=== PATIENT | female | born 1945 | race Caucasian/White ===

== ENCOUNTER 2016-12-25 12:22 | Day surgery (SDC) | payer MEDICARE ==
[~2016-12-25 12:22] MED LIST: POVIDONE-IODINE 5% OPHTH SOLN 600 GTTS/BOT SOLN.DROP ONE
[2016-12-25] MEDS ORDERED: NEO/POLYMYX B SULF/DEXAMETH OP OINT 14 APPLIC/3.5 G TUBE OS ONE (12:30)
[2016-12-25] MEDS ORDERED: PHENYLEPHRINE HCL 10% 100 GTTS/5 ML BOT SOLN.DROP OS PRN (12:30)
[2016-12-25] MEDS ORDERED: CHONDR SULF 4%/HYALURONATE 3% 0.5 ML SYRINGE IO ONE (12:30)
[2016-12-25] MEDS ORDERED: EPINEPHRINE 0.5 MG in BALANCED SALT IRRIG SOLN NO.2 500 ML IO ONE (12:30)
[2016-12-25] MEDS ORDERED: PROPARACAINE HCL 0.5% 300 GTTS/BOT SOLN.DROP OS ONE (12:30)
[2016-12-25] MEDS ORDERED: D5 1/2NS 500 ML IV SCH (12:30)
[2016-12-25] MEDS ORDERED: LIDOCAINE 4% (PRES FREE) 1 ML, BALANCED SALT IRRIG SOLN COMB2 3 ML, EPINEPHRINE 1.25 MG IO ONE ×3 (12:30)
[2016-12-25] MEDS ORDERED: IV START KIT ONE (12:42)
[2016-12-25] MEDS ORDERED: SODIUM CHLORIDE 0.9% 500 ML ONE (12:42)
[2016-12-25] MEDS: FLURBIPROFEN SODIUM 0.03% 50 GTTS/2.5 ML BOT SOLN.DROP OS SCH ×2 (13:03→13:08)
[2016-12-25] MEDS: CYCLOPENTOLATE HCL 1% 40 GTTS/2 ML BOT SOLN.DROP OS SCH ×2 (13:03→13:08)
[2016-12-25] MEDS: PHENYLEPHRINE 2.5% OPHTH 40 GTTS/2 ML BOT SOLN.DROP OS SCH ×2 (13:03→13:08)
[2016-12-25] MEDS ORDERED: MIDAZOLAM HCL 1 MG/ML 2ML VIAL ONE (13:05)
--- NOTE | 2016-12-26 08:56 | OP ---
YULIYA SALAZAR [id number] : 1945 DATE OF SURGERY: December 25, 2016 SURGEON: Krishan Min M.D. PREOPERATIVE DIAGNOSIS: Cataract OS. POSTOPERATIVE DIAGNOSIS: Pseudophakia OS. COMPLICATIONS: None. PROCEDURE: CATARACT EXTRACTION AND INTRAOCULAR LENS IMPLANTATION OS. ANESTHESIA: Monitored anesthesia care. DESCRIPTION OF OPERATION: After proper informed consent and brief history and physical were performed, the patient was brought to the operating room and placed in the supine position on the operating room table. The patient was prepped and draped in the usual sterile fashion for cataract surgery in the left eye. A Keratome blade was used to make a clear corneal incision. Non-preservative Lidocaine was injected into the anterior chamber. Viscoelastic was injected into the anterior chamber. A andrez blade was used to make a paracentesis. A bent needle cystotome was used to begin a capsulorrhexis which was completed with the Utrata forceps. Balanced salt solution (BSS) on a cannula was used to hydrodissect and hydrodelineate the lens, nucleus and cortex. The lens nucleus was removed using the phacoemulsification hand piece. The lens cortex was removed using the I/A handpiece. Viscoelastic was then injected into the capsular bag. Intraocular lens was then injected in the capsular bag and rotated in place. Viscoelastic was removed the anterior chamber and balanced salt solution (BSS) used to hydrate the wound and re-inflate the anterior chamber. The patient tolerated this procedure well without complication. cc: Krishan Min M.D.
== END 2016-12-25 14:39 | disposition home or self-care (01) ==
LOC: SDC 12:22
PROVIDERS: ATTEND Ophthalmology
PROC: 08RK3JZ Replacement of Left Lens with Synthetic Substitute, Percutaneous Approach (ICD-10-PCS; principal; 2016-12-25)
DX: H25.12 Age-related nuclear cataract, left eye (principal); I10 Essential (primary) hypertension; E78.00 Pure hypercholesterolemia, unspecified; Z79.899 Other long term (current) drug therapy; Z86.73 Personal history of transient ischemic attack (TIA), and cerebral infarction without residual deficits